=== PATIENT | female | born 1990 | race Caucasian/White ===

== ENCOUNTER 2016-07-26 18:01 | Emergency (ER) | payer OTHER ==
[2016-07-26 18:11] VITALS: BP 123/84
[2016-07-26] MEDS ORDERED: Ibuprofen TAB* 400 MG PO ONE (18:30)
[2016-07-26] MEDS ORDERED: cefTRIAXone VIAL(*) 1,000 MG VIAL IM ONE (18:30)
--- NOTE | 2016-07-26 18:36 | UC ---
Back Pain HPI - HPI Summary HPI Summary: awoke with right flank pain, mild/moderate, felt like her chronic back pain. She takes narcotics for that. She states she only takes narcotic pain meds once in a while, but took 2 today because the pain was so bad (got Rx for #180 on ). As day wore on, her pain got progressively worse. Started to wrap around to anterior abdomen. MIld nausea, poor appetite. States she last took pain meds at noon. No urinary symptoms, no fever though has felt achey and chilled today. Back pain is "sciatica and two bulging discs", is followed by her primary care doctor and has been referred to back specialist. - History of Current Complaint Chief Complaint: UCGeneralIllness Stated Complaint: RT SIDE BACK PAIN/AB PAIN Time Seen by Provider: 07/26/16 18:20 Hx Obtained From: Patient, Family/[employer] Representative - Hx Last Menstrual Period: APPROX 1 MO AGO Onset/Duration: Gradual Onset, Lasting Days - 1 Timing: Constant Severity Initially: Mild Severity Currently: Severe Back Pain: Is Discrete @ - right flank, wrapping around to right mid abdomen Aggravating: Movement, Lifting, Bending, Walking, Cough Alleviating: Nothing Associated Signs And Symptoms: Positive: Abdominal Pain - right mid abd, Flank Pain - severe, right, Pain with Weight Bearing. Negative: Swelling, Redness, Bruising, Fever, Weakness, Numbness, Tingling, Bladder Incontinence, Bowel Incontinence, Weight Loss - Risk Factors AAA Risk Factors: Negative TAD Risk Factors: Negative Cauda Equina Risk Factors: Negative Epidural Abscess Risk Factors: Negative - Allergies/Home Medications Allergies/Adverse Reactions: Allergies Allergy/AdvReac Type Severity Reaction Status Date / Time Doxycycline AdvReac GI Upset Verified 07/26/16 18:11 Home Medications: Home Medications ALPRAZolam TAB* [Xanax TAB*] 0.25 mg PO TID PRN 07/26/16 [History Confirmed ] HYDROcodone/ACETAMIN 5-325 MG* [[place] 5-325 TAB*] 2 tab PO Q6H PRN MDD 4 [History Confirmed 07/26/16] ValACYclovir (*) [Valtrex 1 GM(*)] 1 gm PO TID PRN 07/26/16 [History Confirmed 07/26/16] PMH/Surg Hx/FS Hx/Imm Hx - Additional Past Medical History Additional PMH: chronic back pain, on narcotics for this Cardiovascular History Of: Reports: Cardiac Disorders - PALPATAITONS Comment Only: Hypertension - while . - Surgical History Surgical History: Yes Surgery Procedure, Year, and Place: ESURE INSERTION DECEMBER 2013. REMOVED 02/2016. SALPINGECTOMY - Family History Known Family History: Negative: Renal Disease - Social History Lives: With Family Alcohol Use: Occasionally Substance Use Type: None Smoking Status (MU): Never Smoked Tobacco Type: Cigarettes Length of Time of Smoking/Using Tobacco: 2008 Have You Smoked in the Last Year: No Review of Systems Constitutional: Chills, Fatigue Skin: Negative Eyes: Negative ENT: Negative Respiratory: Negative Cardiovascular: Negative Gastrointestinal: Negative Genitourinary: Other - progressive right flank pain today. No urinary symptoms noted in past few days Motor: Negative Neurovascular: Negative Musculoskeletal: Decreased ROM, Myalgia Neurological: Negative Psychological: Negative All Other Systems Reviewed And Are Negative: Yes Physical Exam Triage Information Reviewed: Yes Appearance: Well-Appearing, Well-Nourished, Pain Distress - moaning, holding right flank, doesn't want to move off the chair Vital Signs: Initial Vital Signs Temp 100 F 07/26/16 18:05 Pulse 115 07/26/16 18:05 Resp 14 07/26/16 18:05 BP 123/84 07/26/16 18:05 Pulse Ox 97 07/26/16 18:05 Vital Signs Reviewed: Yes Eye Exam: Normal Eyes: Positive: Conjunctiva Clear Neck exam: Normal Neck: Positive: Nontender, No Lymphadenopathy Respiratory Exam: Normal Cardiovascular Exam: Normal Abdomen Description: Positive: Soft, Other: - moderate diffuse tenderness entire right side; exquisite right flank pain on percussion. No redness or swelling. Negative: Distended, Guarding, Hernia @, Hepatomegaly Musculoskeletal Exam: Normal Neurological Exam: Normal Psychological Exam: Normal Skin Exam: Normal Diagnostics - Laboratory Diagnostic Studies Completed/Ordered: U/A : 3+ leuks, 3+ blood, very cloudy Re-Evaluation - Re-Evaluation First Eval Re-Evaluation Time: 19:22 Change: Improved Comment: States she already feels much better, can take a deep breath now without pain Back Pain Course/Dx - Differential Dx/Diagnosis Differential Diagnosis/HQI/PQRI: Herniated Disc, Renal Colic, Strain Provider Diagnoses: pyelonephritis Discharge - Discharge Plan Condition: Stable Disposition: HOME Prescriptions: Cephalexin CAP* [Keflex CAP*] 500 mg PO QID #40 cap Patient Education Materials: Acute Pyelonephritis (ED) Referrals: Tano Torres [Primary Care Provider] -
[2016-07-26] MEDS ORDERED: Lidocaine 1%* 5 ML VIAL ONE (18:37)
== END 2016-07-26 19:25 | disposition home or self-care (01) ==
LOC: UCCORT 18:01
DX: N12 Tubulo-interstitial nephritis, not specified as acute or chronic (principal); Z88.1 Allergy status to other antibiotic agents
CPT/HCPCS: 87077; 87086; 96372; 99212; A9270-GY; G0463; J0696

== ENCOUNTER 2016-10-23 10:59 | Emergency (ER) | payer OTHER ==
[2016-10-23 12:20] VITALS: BP 124/71
--- NOTE | 2016-10-23 12:33 | UC ---
Throat Pain/Nasal Aaron HPI - HPI Summary HPI Summary: pt presents with c/o sore throat and generalized body aches X 2-3 days. Pt states is "hurts to swallow" - History of Current Complaint Stated Complaint: SORE THROAT,BACK PAIN Time Seen by Provider: 10/23/16 12:08 Hx Obtained From: Patient Hx Last Menstrual Period: 10/07/16 ?: No Onset/Duration: Sudden Onset, Lasting Days Severity: Moderate Cough: None Associated Signs & Symptoms: Positive: Dysphagia - Allergies/Home Medications Allergies/Adverse Reactions: Allergies Allergy/AdvReac Type Severity Reaction Status Date / Time Doxycycline AdvReac GI Upset Verified 07/26/16 18:11 PMH/Surg Hx/FS Hx/Imm Hx Previously Healthy: Yes Cardiovascular History Of: Reports: Cardiac Disorders - [place] Comment Only: Hypertension - while . - Surgical History Surgical History: Yes Surgery Procedure, Year, and Place: ESURE INSERTION DECEMBER 2013. REMOVED 02/2016. SALPINGECTOMY - Family History Known Family History: Positive: Other - positive [facility] for cancer Negative: Renal Disease - Social History Alcohol Use: Occasionally Substance Use Type: None Smoking Status (MU): Never Smoked Tobacco Type: Cigarettes Length of Time of Smoking/Using Tobacco: 2008 Have You Smoked in the Last Year: No Review of Systems Constitutional: Chills, Fatigue Skin: Negative Eyes: Negative ENT: Sore Throat Respiratory: Negative Cardiovascular: Negative Gastrointestinal: Negative Genitourinary: Negative Motor: Decreased ROM - low back, preexisting sciatica Neurovascular: Negative Musculoskeletal: Decreased ROM - low back, preexisting sciatica, being followed by PCP for this complaint, Myalgia Neurological: Negative Psychological: Negative All Other Systems Reviewed And Are Negative: Yes Physical Exam Triage Information Reviewed: Yes Appearance: Well-Appearing Vital Signs: Initial Vital Signs Temp 98.7 F 10/23/16 12:14 Pulse 102 10/23/16 12:14 Resp 14 10/23/16 12:14 BP 124/71 10/23/16 12:14 Pulse Ox 99 10/23/16 12:14 Vital Signs Reviewed: Yes Eye Exam: Normal ENT Exam: Other ENT: Positive: Nasal congestion, Tonsillar swelling, Tonsillar exudate Neck exam: Other Neck: Positive: Tenderness @ - left cervical chain Respiratory Exam: Normal Respiratory: Positive: No respiratory distress Cardiovascular Exam: Normal Musculoskeletal Exam: Other Musculoskeletal: Positive: ROM Limited @ - low back, preexisitng sciatica Neurological Exam: Normal Psychological Exam: Normal Skin Exam: Normal Throat Pain/Nasal Course/Dx - Differential Dx/Diagnosis Differential Diagnosis/HQI/PQRI: Pharyngitis, Tonsillitis Provider Diagnoses: tonsillitis Discharge - Discharge Plan Condition: Stable Disposition: HOME Prescriptions: Ibuprofen TAB* [Motrin TAB* 800 MG] 800 mg PO Q8H PRN #21 tab PRN Reason: Pain Penicillin VK TAB 500 MG(NF) [Penicillin VK 500 mg Tab(NF)] 500 mg PO Q8H #30 tab Patient Education Materials: Tonsillitis (ED) Referrals: Tano Torres [Primary Care Provider] - If Needed Additional Instructions: Please follow up with your PCP or return clinic as needed.
== END 2016-10-23 12:41 | disposition home or self-care (01) ==
LOC: UCCORT 10:59
DX: J03.90 Acute tonsillitis, unspecified (principal); Z88.1 Allergy status to other antibiotic agents
CPT/HCPCS: 99212; G0463

== ENCOUNTER 2017-09-19 07:59 | Emergency (ER) | payer OTHER ==
[2017-09-19 08:16] VITALS: BP 120/64
--- NOTE | 2017-09-19 08:57 | UC ---
Abdominal Pain Female HPI - HPI Summary HPI Summary: RLQ ABDOMINAL PAIN X 1 DAY PAIN IS SHARP , SEVER PAIN RADIATES TO HER GROIN AND BACK + NAUSEA , NO VOMITING, NO FEVER, + CHILLS, NO DYSURIA, NO DIARRHEA OR CONSTIPATION - History of Current Complaint Chief Complaint: UCAbdominalPain Stated Complaint: RIGHT SIDE ABD/BACK PAIN 2 DAYS Time Seen by Provider: 09/19/17 08:18 Hx Obtained From: Patient Hx Last Menstrual Period: 09/15/17 ?: No Onset/Duration: Gradual Onset, Lasting Days - 1, Still Present Timing: Constant Severity Initially: Moderate Severity Currently: Severe Pain Intensity: 9 Location: Discrete At: RLQ Radiates: Yes Radiates to: Back, Inguinal Character: Sharp Aggravating Factor(s): Movement Alleviating Factor(s): Nothing Associated Signs and Symptoms: Negative: Fever, Cough, Chest Pain, Dizzy, Back Pain, Constipation, Blood in Stool, Urinary Symptoms, Decreased Appetite, Vaginal Bleeding, Vaginal Discharge, Nausea, Vomiting, Diarrhea Allergies/Adverse Reactions: Allergies Allergy/AdvReac Type Severity Reaction Status Date / Time doxycycline Allergy Unknown rash, gi Verified 09/19/17 08:06 upset Home Medications: Home Medications Acetaminophen [Mapap] 500 mg PO PRN 09/19/17 [History] PMH/Surg Hx/FS Hx/Imm Hx Cardiovascular History: Cardiac Disease - PALPITATION - Surgical History Surgical History: Yes Surgery Procedure, Year, and Place: ESURE INSERTION DECEMBER 2013. REMOVED 02/2016. SALPINGECTOMY - Family History Known Family History: Positive: Other - positive [facility] for cancer Negative: Renal Disease - Social History Alcohol Use: Rare Substance Use Type: None Smoking Status (MU): Never Smoked Tobacco Type: Cigarettes Length of Time of Smoking/Using Tobacco: 2008 Have You Smoked in the Last Year: No Review of Systems Constitutional: Negative Skin: Negative Eyes: Negative ENT: Negative Respiratory: Negative Cardiovascular: Negative Gastrointestinal: Abdominal Pain, Nausea Genitourinary: Negative Is Patient Immunocompromised?: No All Other Systems Reviewed And Are Negative: Yes Physical Exam Triage Information Reviewed: Yes Appearance: Well-Nourished, Pain Distress Vital Signs: Initial Vital Signs Temp 98.4 F 09/19/17 08:08 Pulse 97 09/19/17 08:08 Resp 20 09/19/17 08:08 BP 120/64 09/19/17 08:08 Pulse Ox 98 03/27/18 08:08 Vital Signs Reviewed: Yes Eyes: Positive: Conjunctiva Clear ENT: Positive: Normal ENT inspection, Hearing grossly normal, Pharynx normal Neck: Positive: Supple, Nontender, No Lymphadenopathy Respiratory: Positive: Chest non-tender, Lungs clear, Normal breath sounds, No respiratory distress Cardiovascular: Positive: RRR, No Murmur, Pulses Normal Abdomen Description: Positive: Soft, Other: - TEDNERNESS RLQ. Negative: CVA Tenderness (R), CVA Tenderness (L), Distended, Guarding, Hernia @ Musculoskeletal Exam: Normal Neurological Exam: Normal Skin Exam: Normal Diagnostics - Laboratory Diagnostic Studies Completed/Ordered: CT abd / pelvic wo contrast. IMPRESSION: 1. NO HYDRONEPHROSIS OR NEPHROLITHIASIS. 2. THERE IS SMALL AMOUNT OF FREE FLUID WITHIN THE PELVIS. THIS MAY BE PHYSIOLOGIC WITHIN. A REPRODUCTIVE AGE FEMALE. 3. THERE ARE SCATTERED DIVERTICULA OF THE ASCENDING COLON WITH MILD PERICOLONIC. INFLAMMATORY CHANGE, WHICH MAY REPRESENT EARLY ACUTE RIGHT COLON DIVERTICULITIS IN THE. CORRECT CLINICAL SETTING.. Abd Pain Female Course/Dx - Differential Dx/Diagnosis Provider Diagnoses: RLQ ABDOMINAL PAIN Discharge - Sign-Out/Discharge Documenting (check all that apply): Discharge - Discharge Plan Condition: Stable Disposition: HOME Prescriptions: Ciprofloxacin TAB* [Cipro 500 MG TAB*] 500 mg PO BID #20 tab HYDROcodone/ACETAMIN 5-325 MG* [[place] 5-325 TAB*] 1 tab PO Q6H PRN #12 tab MDD 4 PRN Reason: Pain metroNIDAZOLE [Flagyl] 500 mg PO BID #14 tablet Patient Education Materials: Acute Abdominal Pain (DC) Referrals: Family [facility] [Primary Care Provider] - 5 Days Additional Instructions: CT abd/ pelvic : ? diverticulitis, also concern about kidney infection cont. with rest, increase fluid, Cipro 500 mg 2 x per day x 10 days, flagyl 500 mg 2 x per day x 7 days follow up with your pcp in 5 days - Billing Disposition and Condition Condition: STABLE Disposition: HOME
--- NOTE | 2017-09-19 09:15 | RAD ---
CLINICAL HISTORY: Right lower quadrant abdominal pain COMPARISON: August 14, 2015 TECHNIQUE: Multiple contiguous axial CT scans were obtained of the abdomen and pelvis, without intravenous contrast enhancement. Coronal and sagittal multiplanar reformations are submitted for review. Oral contrast was not administered. FINDINGS: The study is limited by the lack of intravenous contrast. This limits evaluation of the solid organs and vasculature. LUNG BASES: The lung bases are clear. LIVER: The liver is normal in shape, size, contour, and attenuation. BILE DUCTS: There is no intrahepatic or extrahepatic biliary dilatation. GALLBLADDER: The gallbladder is normal, without pericholecystic inflammatory change. PANCREAS: The pancreas is normal, without mass or ductal dilatation. SPLEEN: Normal in size and appearance. UPPER GI TRACT: Evaluation of the gastrointestinal tract is limited by incomplete gastric distention. The upper GI tract is unremarkable. SMALL BOWEL AND MESENTERY: The small bowel is normal in contour, course, and caliber. There is no obstruction or dilatation. COLON: There are scattered diverticula of the ascending colon. There is mild pericolonic inflammatory change along the ascending colon. ADRENALS: Normal bilaterally. KIDNEYS: The kidneys are normal in shape, size, contour, and axis. There is no hydronephrosis or nephrolithiasis. BLADDER: The bladder is smooth in contour. PELVIC ORGANS: Contraceptive inserts are noted. The uterus and adnexa are grossly normal for technique. There is a small amount of free fluid within the pelvis. AORTA: The aorta is normal. IVC: Unremarkable LYMPH NODES: There is no lymphadenopathy by size criteria. ABDOMINAL WALL: There is no evidence for abdominal wall hernia. BONES AND SOFT TISSUES: There are mild diffuse degenerative changes. OTHER: None IMPRESSION: 1. NO HYDRONEPHROSIS OR NEPHROLITHIASIS. 2. THERE IS SMALL AMOUNT OF FREE FLUID WITHIN THE PELVIS. THIS MAY BE PHYSIOLOGIC WITHIN A REPRODUCTIVE AGE FEMALE. 3. THERE ARE SCATTERED DIVERTICULA OF THE ASCENDING COLON WITH MILD PERICOLONIC INFLAMMATORY CHANGE, WHICH MAY REPRESENT EARLY ACUTE RIGHT COLON DIVERTICULITIS IN THE CORRECT CLINICAL SETTING..
[2017-09-19] MEDS ORDERED: Ibuprofen TAB* 600 MG PO ONE (09:16)
== END 2017-09-19 09:42 | disposition home or self-care (01) ==
LOC: UCCORT 07:59
DX: R10.31 Right lower quadrant pain (principal); K57.30 Diverticulosis of large intestine without perforation or abscess without bleeding; Z87.891 Personal history of nicotine dependence; Z88.3 Allergy status to other anti-infective agents
CPT/HCPCS: 74176; 81003; 87086; 99212; A9270-GY; G0463

== ENCOUNTER 2018-01-25 12:13 | Emergency (ER) | payer SELFPAY ==
[2018-01-25 13:16] VITALS: BP 136/73
--- NOTE | 2018-01-25 13:28 | UC ---
Lower Extremity/Ankle HPI - HPI Summary HPI Summary: Pt c/o right ankle pain that began on 01/20/18 after "rolling " ankle inward. Pt applied ice and elevated ankle with improvement to pain and swelling. Pt reports then she repeated "rolling " ankle yesterday morning and now right ankle is painful and swollen. Can bear minimum weight - History of Current Complaint Chief Complaint: UCTrauma Stated Complaint: RIGHT ANKLE INJURY Time Seen by Provider: 01/25/18 13:12 Hx Obtained From: Patient Hx Last Menstrual Period: present ?: No Onset/Duration: Sudden Onset, Lasting Days, Still Present Severity Initially: Mild Severity Currently: Moderate Pain Intensity: 8 Aggravating Factor(s): Standing, Ambulation Alleviating Factor(s): Rest, Elevation, Ice Able to Bear Weight: Yes - minimal - Risk Factors Gout Risk Factors: Negative DVT Risk Factors: Negative Septic Arthritis Risk Factor: Negative - Allergies/Home Medications Allergies/Adverse Reactions: Allergies Allergy/AdvReac Type Severity Reaction Status Date / Time doxycycline Allergy Unknown rash, gi Verified 01/25/18 13:16 upset Home Medications: Home Medications NK [No Home Medications Reported] 01/25/18 [History Confirmed 01/25/18] PMH/Surg Hx/FS Hx/Imm Hx Previously Healthy: Yes - Surgical History Surgical History: Yes Surgery Procedure, Year, and Place: ESURE INSERTION DECEMBER 2013. REMOVED 02/2016. SALPINGECTOMY - Family History Known Family History: Positive: Other - positive [facility] for cancer Negative: Renal Disease - Social History Occupation: Employed Full-time Lives: With Family Alcohol Use: Rare Substance Use Type: None Smoking Status (MU): Never Smoked Tobacco Type: Cigarettes Length of Time of Smoking/Using Tobacco: 2008 Have You Smoked in the Last Year: No Review of Systems Constitutional: Negative Skin: Bruising Eyes: Negative ENT: Negative Respiratory: Negative Cardiovascular: Negative Gastrointestinal: Negative Genitourinary: Negative Motor: Decreased ROM - right ankle, Weakness - right ankle Neurovascular: Negative Musculoskeletal: Arthralgia, Decreased ROM, Edema, Myalgia Neurological: Negative Psychological: Negative Is Patient Immunocompromised?: No All Other Systems Reviewed And Are Negative: Yes Physical Exam Triage Information Reviewed: Yes Appearance: Pain Distress Vital Signs: Initial Vital Signs Temp 98.5 F 01/25/18 13:10 Pulse 92 01/25/18 13:10 Resp 18 01/25/18 13:10 BP 136/73 01/25/18 13:10 Pulse Ox 99 01/25/18 13:10 Vital Signs Reviewed: Yes Eye Exam: Normal ENT Exam: Normal ENT: Positive: Hearing grossly normal Dental Exam: Normal Neck exam: Normal Respiratory Exam: Normal Respiratory: Positive: No respiratory distress Musculoskeletal: Positive: ROM Limited @ - right ankle, Edema @ - right lateral malleous Neurological Exam: Normal Psychological Exam: Normal Skin Exam: Normal Diagnostics - Radiology No standard instances Radiology Interpretation Completed By: Radiologist - IMPRESSION: NO ACUTE OSSEOUS INJURY. IF SYMPTOMS PERSIST, RECOMMEND REPEAT IMAGING. Lower Extremity Course/Dx - Differential Dx/Diagnosis Differential Diagnosis/HQI/PQRI: Fracture (Closed), Sprain Provider Diagnoses: right ankle sprain Discharge - Sign-Out/Discharge Documenting (check all that apply): Patient Departure - Discharge Plan Condition: Stable Disposition: HOME Patient Education Materials: Ankle Sprain (ED), R.I.C.E. Treatment (ED) Referrals: Harrison Deal MD [Primary Care Provider] - If Needed Nino Richardson MD [Medical Doctor] - If Needed - Billing Disposition and Condition Condition: STABLE Disposition: Home
--- NOTE | 2018-01-25 13:44 | RAD ---
HISTORY: inverse ankle roll X 2, swelling, pain COMPARISONS: August 25, 2014 VIEWS: 3, Frontal, lateral, and oblique views of the right ankle FINDINGS: BONE DENSITY: Normal. BONES: There is no displaced fracture. JOINTS: There is no arthropathy. ALIGNMENT: There is no dislocation. SOFT TISSUES: Unremarkable. OTHER FINDINGS: None. IMPRESSION: NO ACUTE OSSEOUS INJURY. IF SYMPTOMS PERSIST, RECOMMEND REPEAT IMAGING.
== END 2018-01-25 14:13 | disposition home or self-care (01) ==
LOC: UCCORT 12:13
DX: S93.401A Sprain of unspecified ligament of right ankle, initial encounter (principal); X50.0XXA Overexertion from strenuous movement or load, initial encounter; Y93.9 Activity, unspecified; Y92.9 Unspecified place or not applicable; Z88.1 Allergy status to other antibiotic agents
CPT/HCPCS: 99212; G0463

== ENCOUNTER 2018-11-01 07:28 | Emergency (ER) | payer OTHER ==
[2018-11-01 07:42] VITALS: BP 108/77
--- NOTE | 2018-11-01 07:53 | UC ---
Throat Pain/Nasal Aaron HPI - HPI Summary HPI Summary: Patient presents to urgent care with 4 days of progressive right ear pain radiating to her right side of her neck and throat. Patient also states she has a cough that causes burning in her chest. No shortness of breath. No productive sputum. No fevers or chills. Patient took Motrin Tylenol yesterday but nothing today. Patient is not taken any other [id number] medications. Patient denies sick contacts. Patient denies short of breath. No abdominal pain. No nausea vomiting. No rash. Patient states she is not . Patient's medications reviewed this visit. - History of Current Complaint Chief Complaint: UCRespiratory Stated Complaint: SORE THROAT, COUGH, EAR/JAW PAIN Time Seen by Provider: 11/01/18 07:52 Hx Obtained From: Patient Hx Last Menstrual Period: 10/08/18 Onset/Duration: Gradual Onset Severity: Moderate Pain Intensity: 6 Pain Scale Used: 0-10 Numeric - Allergies/Home Medications Allergies/Adverse Reactions: Allergies Allergy/AdvReac Type Severity Reaction Status Date / Time doxycycline Allergy Unknown rash, gi Verified 11/01/18 07:44 upset Home Medications: Home Medications Acetaminophen [Tylenol Extra Strength] 1,000 mg PO ONCE PRN 11/01/18 [History Confirmed 11/01/18] Citalopram TAB* [CeleXA TAB*] 40 mg PO DAILY 11/01/18 [History Confirmed ] Ibuprofen TAB* [Motrin TAB* 400 MG] 400 mg PO ONCE PRN 11/01/18 [History Confirmed 11/01/18] PMH/Surg Hx/FS Hx/Imm Hx Previously Healthy: Yes - Surgical History Surgical History: Yes Surgery Procedure, Year, and Place: ESURE INSERTION DECEMBER 2013. REMOVED 02/2016; tubal ligation. SALPINGECTOMY - Family History Known Family History: Positive: Other - positive [facility] for cancer, Non- Contributory Negative: Renal Disease - Social History Occupation: Employed Full-time Lives: With Family Alcohol Use: Rare Substance Use Type: None Smoking Status (MU): Never Smoked Tobacco Type: Cigarettes Length of Time of Smoking/Using Tobacco: 2009 Have You Smoked in the Last Year: No Review of Systems All Other Systems Reviewed And Are Negative: Yes Skin: Positive: Negative Eyes: Positive: Negative ENT: Positive: Sore Throat, Ear Ache, Nasal Discharge, Sinus Congestion Respiratory: Positive: Negative Cardiovascular: Positive: Negative Physical Exam - Summary Physical Exam Summary: Vital Signs Reviewed: Yes A+Ox3, no distress Eyes: Conjunctiva Clear, BOBBY. EOM intact and full ENT: Hearing grossly normal right TM++ fluid, no erythema, mild retraction left TM wnl No dental pain, no TMJ brianna, full jaw opening, mmoist, uvula midline, no exudate, no erythema Neck: Positive: Supple, no lymphadenopathy Respiratory: Positive: No respiratory distress, No accessory muscle use + CTA throughout no w/r, no cough Cardiovascular: RRR nl s1, s2 no m/r CBT <2 sec abd soft + BS nt/nd no guarding, no distension Musculoskeletal Exam: CORTES x 4 without difficulty Strength Intact, ROM Intact Neurological: Positive: Alert, + sensation throughout Psychological: Positive: Normal Response To Family Skin: Positive: no rash, no ecchymosis Triage Information Reviewed: Yes Vital Signs: Initial Vital Signs Temp 98.3 F 11/01/18 07:38 Pulse 94 11/01/18 07:38 Resp 16 11/01/18 07:38 BP 108/77 11/01/18 07:38 Pulse Ox 99 11/01/18 07:38 Throat Pain/Nasal Course/Dx - Course Course Of Treatment: Patient presents with progressive right ear pain right throat pain and a cough. Patient states this is been going on for 4-5 days. On exam vital signs are stable. Patient consistent with right otitis media. No intraoral lesions red throat. No difficulty with swallowing. Lungs are clear without wheezing or increased work of breathing. Discussed with patient at length. Recommend antibiotics and Flonase. Motrin Tylenol. Gargle spit with warm salt water. Secretion precaution. Return precaution. Comfortable in agreement with plan. - Differential Dx/Diagnosis Provider Diagnosis: Right otitis media Discharge - Sign-Out/Discharge Documenting (check all that apply): Post-Discharge Follow Up All imaging exams completed and their final reports reviewed: No Studies - Discharge Plan Condition: Stable Disposition: HOME Prescriptions: Amoxicillin/Clavulanate TAB* [Augmentin TAB 875*] 875 mg PO BID #20 tab Fluticasone NASAL SPRAY 50MCG* [Flonase NASAL SPRAY 50MCG*] 2 spray BOTH NARES DAILY #1 btl Patient Education Materials: Ear Infection (ED) Referrals: Harrison Deal MD [Primary Care Provider] - Additional Instructions: - Stay well hydrated. Drink plenty of non-alcoholic, non-caffinated beverages. - Alternate ibuprofen (Advil, Motrin) 600mg and Tylenol every 3 hours for pain or fever. Take with food. Do NOT take for more than 4-5 days. - These infections are spread by secretions - do NOT share eating or drinking utensils - clean items you share with other people such as cell phones, computer mouse, TV remote, computer tablets,etc. Once you have been antibiotics for 2 days, change your toothbrush and your pillowcase. - get plenty of restful sleep - humidify the air in the room where you sleep - boil water, run a hot steam shower, vaporizer, cups of water by heat register - okay to take over the counter decongestant and cough medication - use nasal spray as prescribed - contact your doctor or return with questions or concerns - Billing Disposition and Condition Condition: STABLE Disposition: Home
== END 2018-11-01 08:10 | disposition home or self-care (01) ==
LOC: UCCORT 07:28
DX: H66.91 Otitis media, unspecified, right ear (principal); Z88.1 Allergy status to other antibiotic agents
CPT/HCPCS: 99211; G0463

== ENCOUNTER 2019-04-04 08:02 | Emergency (ER) | payer OTHER ==
--- OUTSIDE RECORDS SUMMARY | 2019-04-04 08:18 | XMS REPORT | Continuity of Care Document ---
:1990 External Reference #:[id number] Author Name Harrison Deal M.D. Address [address] [facility] [address] [place] [address] Care Team Providers Name Role Phone Harrison Deal MD - Family Medicine Care Team Information Tank Builder Supervisor Cheryl Rivera MD - Obstetrics & Care Team Information Tank Builder Supervisor Gynecology Problems Description No Information Available Social History Type Date Description Comments Sex Unknown ETOH Use Occasionally consumes alcohol Tobacco Use Start: Unknown Patient has never smoked Allergies, Adverse Reactions, Alerts Active Allergies Reaction Severity Comments Date Doxycycline Severe Acid Reflux 01/08/2015 Inactive Allergies NKDA 12/11/2014 Medications Active Medications SIG Qnty Indications Ordering Provider Date Alprazolam 1 tab by mouth 30tabs F41.9 Harrison Deal, 03/06/2019 0.25mg Tablets twice a day as M.D. needed Phentermine HCL 1 by mouth every 30caps E66.9 Harrison Deal, 03/06/2019 37.5mg in the morning M.D. Capsules Citalopram Take One Tablet 90tabs F41.9 Harrison Deal, 08/22/2018 Hydrobromide By Mouth Every M.D. 40mg Tablets Day F33.9 Ibuprofen 1 by mouth three 90tabs M51.37 Harrison Deal, 09/22/2017 800mg Tablets times a day as M.D. needed M54.17 R10.31 Valacyclovir HCL tab one by mouth 90tabs B00.2 Harrison Deal, 1gm Tablets three times a day M.D. as needed Immunizations CPT Code Status Date Vaccine Lot # [id number] Refused 05/01/2015 Flu Vaccine Vital Signs Date Vital Result Comment 03/06/2019 8:31am BP Systolic 124 mmHg BP Diastolic 66 mmHg Height 63.75 inches 5'3.75" Weight 206.00 lb BMI (Body Mass Index) 35.6 kg/m2 Heart Rate 87 /min Respiratory Rate 16 /min 11/23/2018 9:24am Height 63.75 inches 5'3.75" Weight 203.00 lb BMI (Body Mass Index) 35.1 kg/m2 Heart Rate 87 /min Respiratory Rate 16 /min Results Test Date Facility Test Result H/L Range Note Laboratory test 03/06/2019 [facility] Sed Rate <pending> finding [address] (607)- - T4 Free - Thyroxine <pending> TSH, Ultrasenstive <pending> Laboratory test 03/06/2019 [facility] 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 03/06/2019 J30.9 Allergic rhinitis, unspecified Harrison Deal M.D. 03/06/2019 F41.9 Anxiety disorder, unspecified Harrison Deal M.D. 03/06/2019 K21.9 Gastro-esophageal reflux disease without Harrison Deal M.D. esophagitis 03/06/2019 B00.2 Herpesviral gingivostomatitis and Harrison Deal M.D. pharyngotonsillitis 03/06/2019 E66.9 Obesity, unspecified Harrison Deal M.D. 03/06/2019 M51.37 Other intervertebral disc degeneration, Harrison Deal M.D. lumbosacral region 03/06/2019 K57.32 Diverticulitis of large intestine without Harrison Deal M.D. perforation or abs 03/06/2019 Z30.8 Encounter for other contraceptive management Harrison Deal M.D. 03/06/2019 M54.17 Radiculopathy, lumbosacral region Harrison Deal M.D. 03/06/2019 F33.9 Major depressive disorder, recurrent, Harrison Deal M.D. unspecified 03/06/2019 E55.9 Vitamin D deficiency, unspecified Harrison Deal M.D. 02/27/2019 L20.9 Atopic dermatitis, unspecified Harrison Deal M.D. 02/27/2019 J30.9 Allergic rhinitis, unspecified Harrison Deal M.D. 02/27/2019 F41.9 Anxiety disorder, unspecified Harrison Deal M.D. 02/27/2019 K21.9 Gastro-esophageal reflux disease without Harrison Deal M.D. esophagitis 02/27/2019 B00.2 Herpesviral gingivostomatitis and Harrison Deal M.D. pharyngotonsillitis 02/27/2019 E66.9 Obesity, unspecified Harrison Deal M.D. 02/27/2019 M51.37 Other intervertebral disc degeneration, Harrison Deal M.D. lumbosacral region 02/27/2019 K57.32 Diverticulitis of large intestine without Harrison Deal M.D. perforation or abs 02/27/2019 Z30.8 Encounter for other contraceptive management Harrison Deal M.D. 02/27/2019 M54.17 Radiculopathy, lumbosacral region Harrison Deal M.D. 02/27/2019 F33.9 Major depressive disorder, recurrent, Harrison Deal M.D. unspecified 02/27/2019 E55.9 Vitamin D deficiency, unspecified Harrison Deal M.D. 11/23/2018 L20.9 Atopic dermatitis, unspecified Harrison Deal M.D. 11/23/2018 J30.9 Allergic rhinitis, unspecified Harrison Deal M.D. 11/23/2018 F41.9 Anxiety disorder, unspecified Harrison Deal M.D. 11/23/2018 K21.9 Gastro-esophageal reflux disease without Harrison Deal M.D. esophagitis 11/23/2018 B00.2 Herpesviral gingivostomatitis and Harrison Deal M.D. pharyngotonsillitis 11/23/2018 E66.9 Obesity, unspecified Harrison Deal M.D. 11/23/2018 M51.37 Other intervertebral disc degeneration, Harrison Deal M.D. lumbosacral region 11/23/2018 K57.32 Diverticulitis of large intestine without Harrison Deal M.D. perforation or abs 11/23/2018 Z30.8 Encounter for other contraceptive management Harrison Deal M.D. 11/23/2018 M54.17 Radiculopathy, lumbosacral region Harrison Deal M.D. 11/23/2018 F33.9 Major depressive disorder, recurrent, Harrison Deal M.D. unspecified Plan of Treatment 03/06/2019 - Harrison Deal M.D.L20.9 Atopic dermatitis, unspecifiedComments: SKIN CARE INSTRUCTIONS LOTION OR BABY OIL 2-3 APPLICATION PER DAYUSE MOISTURIZING SOAPAVOID PROLONGED WATER EXPOSUREAVOID USING HOT WATER IN SHOWERFollow up:2 weeks.J30.9 Allergic rhinitis, unspecifiedComments:INCREASE PO FLUID USE ANTIHISTAMINE PRN SECOND HAND SMOKING [id number] Anxiety disorder, unspecifiedNew Medication:Alprazolam 0.25 mg - 1 tab by mouth twice a day as neededComments:COUNCELLING AND REASSURANCE RELAXATION TECHNIQUES DISCUSSEDCOUNSELED RE: STRESSORS IN LIFE AVOID ALLENERGY/HIGH CAFFEINE DRINKS DUR CHECKED TO RESTART CITALOPRAM AND REEVALUATE IN 2 WKSK21.9 Gastro- esophageal reflux disease without esophagitisComments:AVOID CAFFEINE, ETOH AND SPICY FOODSTUMS OR MYLANTA PRN CALL WITH PROBLEMS OR HXHGZTVUJ32.2 Herpesviral gingivostomatitis and pharyngotonsillitisComments:ORAL HYGIENE XUAISXAGGYGQB08.9 Obesity, unspecifiedNew Medication:Phentermine HCL 37.5 mg - 1 by mouth every in the morningComments:WT LOSS COUNCELLINGEXERCISEDIET OQPUNBSLMTMI51.37 Other intervertebral disc degeneration, lumbosacral regionComments:EXERCISE/HEAT /MESSAGEAVOID HEAVY LIFTING WT LOSSTYLENOL OR MOTRIN PRN DUR ZFDGMPOG09.32 Diverticulitis of large intestine without perforation or absComments:TYLENOL OR MOTRIN PRNINCREASE PO FLUID LAXATIVE PRN F /U DIRECTEDF/U WITH GI PRNZ30.8 Encounter for other contraceptive managementComments:F/U WITH OB/GYNM54.17 Radiculopathy, lumbosacral regionComments:EXERCISE/HEAT /MESSAGE AVOID HEAVY LIFTING WT LOSS TYLENOL OR MOTRIN PRN DUR JAMBIGQS67.9 Major depressive disorder, recurrent, unspecifiedComments:COUNCELLING AND REASSURANCE RELAXATION TECHNIQUESSTRESSORS IN LIFE AVOID ALL ENERGY/HIGH CAFFEINE ZCNXPNG76.9 Vitamin D deficiency, unspecifiedComments:INCREASE EXPOSURE TO SUNREVIEW OF DIET Functional Status Description No Information Available Mental Status Description No Information Available Referrals Description No Information Available
--- OUTSIDE RECORDS SUMMARY | 2019-04-04 08:18 | XMS REPORT | Continuity of Care Document ---
:1990 External Reference #:[id number] Author Name Harrison Deal M.D. Address [address] [facility] [address] [place] [address] Care Team Providers Name Role Phone Harrison Deal MD - Family Medicine Care Team Information Fisher Oyster [phone] Cheryl Rivera MD - Obstetrics & Care Team Information Fisher Oyster Gynecology Problems Description No Information Available Social [...] CPT Code Status Date Vaccine Lot # [id number] Refused 05/01/2015 Flu Vaccine Vital Signs Date Vital Result Comment 03/20/2019 8:48am BP Systolic 124 mmHg BP Diastolic 64 mmHg Height 63.75 inches 5'3.75" Weight 198.00 lb BMI (Body Mass Index) 34.2 kg/m2 Heart Rate 98 /min Respiratory Rate 16 /min 03/06/2019 8:31am BP Systolic 124 mmHg BP Diastolic 66 mmHg Height 63.75 inches 5'3.75" Weight 206.00 lb BMI (Body Mass Index) 35.6 kg/m2 Heart Rate 87 /min Respiratory Rate 16 /min Results Test Date Facility Test Result H/L Range Note CBC With Diff 03/06/2019 [facility] WBC 8.4 10*3/uL (4.1-11.0) [address] (607)- - RBC 4.42 10*6/uL (4.00-5.40) HGB 13.5 g/dL (12.0-16.0) HCT 39.5 % (36.0-47.0) MCV 89.5 fL (80.0-95.0) MCH 30.5 pg (27.0-32.0) MCHC 34.1 g/dL (32.0-36.0) RDW 13.0 % (10.5-14.5) PLT 316 10*3/uL (150-450) MPV 9.2 fL (7.1-10.7) Neut % 57.7 % (35.0-75.0) Lymph % 31.8 % (16.0-52.0) Crane % 8.6 % High (0.0-8.0) Eos % 1.4 % (0.0-5.0) Baso % 0.5 % (0.0-4.0) Neut # 4.8 10*3/uL (1.8-7.7) Lymph # 2.7 10*3/uL (1.2-4.8) Crane # 0.7 10*3/uL (0.0-0.8) Eos # 0.1 10*3/uL (0.0-0.5) Baso # 0.0 10*3/uL (0.0-0.2) CMP 03/06/2019 [facility] Sodium 141 mmol/L (136-145) [address] (605)- - Potassium 4.3 mmol/L (3.6-5.2) Chloride 107 mmol/L (100-108) Co2 30 mmol/L (22-31) Anion Gap 4 mmol/L Low (7-16) Urea Nitrogen 13 mg/dL (7-24) Creatinine 0.67 mg/dL (0.60-1.00) BUN/Creat Ratio 19.4 RATIO (10.0-20.0) Glucose 92 mg/dL (70-99) Calcium 9.2 mg/dL (8.4-10.2) Total Protein 7.1 g/dL (6.4-8.2) Albumin 3.9 g/dL (3.5-4.6) Globulin 3.2 g/dL (2.7-4.3) Alb/Glob Ratio 1.2 RATIO Alkaline Phosphatase 98 U/L (45-117) Bilirubin,Total 0.4 mg/dL (0.0-1.0) Ast (Sgot) 26 U/L (11-39) Alt (SGPT) 71 U/L (12-78) GFR >60 ml/min/1.73m2 (>59) GFR ( Amer) >60 ml/min/1.73m2 (>59) GFR Interpretation <SEE NOTE> 1 Laboratory test finding 03/06/2019 [facility] Esr 12 mm/h (0-20) [address] (539)- - Free Thyroxine @ 0.91 ng/dL (0.76-1.46) TSH,Ultrasensitive @ 3.720 mIU/L (0.360-4.170) Lipid 03/06/2019 [facility] Cholesterol @ 200 mg/dL (0-200) [address] (910)- - Triglyceride @ 122 mg/dL (30-200) HDL Cholesterol @ 38 mg/dL Low (>40) 2 Chol/HDL Ratio 5.3 RATIO 3 LDL Chol (Calc) 138 mg/dL High (<130) 4 Laboratory test 03/06/2019 [facility] 25 Hydroxy Vit 31 ng/mL (31-100 ) 5 finding [address] D @ (351)- - 1 NORMAL KIDNEY FUNCTION OR MILD DISEASE - GFR >OR= 60 CHRONIC KIDNEY DISEASE - GFR 15 - 59 RENAL FAILURE - GFR <15 Est. GFR calculation based on the MDRD study equation, which assumes a steady state for creatinine. Est. GFR should not be used for medication dosing. 2 PER NCEP ATP III GUIDELINES: RESULTS LOWER THAN 40 MG/DL ARE SUGGESTIVE OF INCREASED RISK FOR CORONARY ARTERY DISEASE. RESULTS > OR = TO 60 MG/DL ARE CONSIDERED A NEGATIVE RISK FACTOR. 3 INTERPRETATION OF CHOL-HDL RATIO CHD RISK FEMALE MALE VERY HIGH >8.3 >14.3 HIGH 5.6- 8.3 6.7- 14.3 AVERAGE 3.7- 5.6 4.0- 6.7 BELOW AVERAGE 2.5- 3.7 2.7- 4.0 PROTECTED <2.5 <2.7 4 PER NCEP ATP III GUIDELINES: OPTIMAL < 100 NEAR OPTIMAL 100 - 129 BORDERLINE HIGH 130 - 159 HIGH 160 - 189 VERY HIGH > 189 5 A REVIEW OF THE LITERATURE SUGGESTS THE FOLLOWING RANGES FOR THE CLASSIFICATION OF 25-OH VITAMIN D STATUS: VITAMIN D STATUS 25-OH VITAMIN D DEFICIENCY <20 NG/ML INSUFFICIENCY 20-30 NG/ML SUFFICIENCY 31 - 100 NG/ML TOXICITY > 100 NG/ML A PEDIATRIC REFERENCE RANGE HAS NOT BEEN ESTABLISHED USING THIS METHOD. Procedures Description No Information Available Medical Devices Description No Information Available Encounters Type Date Location Provider Dx Diagnosis Office Visit 03/06/2019 Harrison Rodrigez, L20.9 Atopic dermatitis, 8:30a M.D. 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 03/20/2019 J30.9 Allergic rhinitis, unspecified Harrison Deal M.D. 03/20/2019 F41.9 Anxiety disorder, unspecified Harrison Deal M.D. 03/20/2019 K21.9 Gastro-esophageal reflux disease without Harrison Deal M.D. esophagitis 03/20/2019 B00.2 Herpesviral gingivostomatitis and Harrison Deal M.D. pharyngotonsillitis 03/20/2019 E66.9 Obesity, unspecified Harrison Deal M.D. 03/20/2019 M51.37 Other intervertebral disc degeneration, Harrison Deal M.D. lumbosacral region 03/20/2019 K57.32 Diverticulitis of large intestine without Harrison Deal M.D. perforation or abscess without bleeding 03/20/2019 Z30.8 Encounter for other contraceptive management Harrison Deal M.D. 03/20/2019 M54.17 Radiculopathy, lumbosacral region Harrison Deal M.D. 03/20/2019 F33.9 Major depressive disorder, recurrent, Harrison Deal M.D. unspecified 03/20/2019 E55.9 Vitamin D deficiency, unspecified Harrison Deal M.D. 03/06/2019 L20.9 Atopic dermatitis, unspecified Harrison Deal [...] M.D. esophagitis 02/27/2019 B00.2 Herpesviral gingivostomatitis and SayHarrison M.D. pharyngotonsillitis 02/27/2019 E66.9 Obesity, unspecified Harrison [...] Harrison Deal M.D. unspecified Plan of Treatment 03/20/2019 - Harrison Deal M.D.L20.9 Atopic dermatitis, unspecifiedComments: SKIN CARE INSTRUCTIONS LOTION OR BABY OIL 2-3 APPLICATION PER DAYUSE MOISTURIZING SOAPAVOID PROLONGED WATER EXPOSUREAVOID USING HOT WATER IN HCYLRBO65.9 Allergic rhinitis, unspecifiedComments:INCREASE PO FLUID USE ANTIHISTAMINE PRN SECOND HAND SMOKING [id number] Anxiety disorder, unspecifiedComments:COUNCELLING AND REASSURANCE RELAXATION TECHNIQUES DISCUSSEDCOUNSELED RE: STRESSORS IN LIFE AVOID ALLENERGY/HIGH CAFFEINE DRINKS DUR CHECKED TO RESTART CITALOPRAM AND REEVALUATE IN 2 WKSK21.9 Gastro- esophageal reflux disease without esophagitisComments:AVOID CAFFEINE, ETOH AND SPICY FOODSTUMS OR MYLANTA PRN CALL WITH PROBLEMS OR NFFJZZCSZ01.2 Herpesviral gingivostomatitis and pharyngotonsillitisComments:ORAL HYGIENE GQZNYWWDDCTZI47.9 Obesity, unspecifiedComments:WT LOSS COUNCELLINGEXERCISEDIET KZYMWEREWSTV57.37 Other intervertebral disc degeneration, lumbosacral regionComments:EXERCISE/HEAT /MESSAGEAVOID HEAVY LIFTING WT LOSSTYLENOL OR MOTRIN PRN DUR FVZVPUAT22.32 Diverticulitis of large intestine without perforation or abscess without bleedingComments:TYLENOL OR MOTRIN PRNINCREASE PO FLUID LAXATIVE PRN F/U DIRECTEDF/U WITH GI PRNZ30.8 Encounter for other contraceptive managementComments:F/U WITH OB/GYNM54.17 Radiculopathy, lumbosacral regionComments:EXERCISE/HEAT /MESSAGE AVOID HEAVY LIFTING WT LOSS TYLENOL OR MOTRIN PRN DUR MHEEUOTJ85.9 Major depressive disorder, recurrent, unspecifiedComments:COUNCELLING AND REASSURANCE RELAXATION TECHNIQUESSTRESSORS IN LIFE AVOID ALL ENERGY/HIGH CAFFEINE QCLYTKB83.9 Vitamin D deficiency, unspecifiedComments:INCREASE EXPOSURE TO SUNREVIEW OF DIET Functional Status Description No Information Available Mental Status Description No Information Available Referrals Description No Information Available
[2019-04-04 08:26] VITALS: BP 121/81
--- NOTE | 2019-04-04 08:44 | UC ---
Ear Complaint HPI - HPI Summary HPI Summary: The patient is a 28-year-old female with a one to 2 day history of bilateral earaches. She has had no fever. She has a mild bitemporal headache. She has some nasal congestion and postnasal drip. She has a history of seasonal allergic rhinitis. - History of Current Complaint Chief Complaint: UCEar Stated Complaint: JEROME,BILAT EAR PAIN Time Seen by Provider: 04/04/19 08:36 Hx Obtained From: Patient Hx Last Menstrual Period: 04/02/19 Onset/Duration: Gradual Onset, Lasting Hours Severity Initially: Severe Severity Currently: Severe Pain Intensity: 8 Pain Scale Used: 0-10 Numeric Aggravating Factors: Nothing Alleviating Factors: Nothing Associated Signs/Symptoms: Positive: URI Symptoms Related History: Seasonal Allergies - Allergies/Home Medications Allergies/Adverse Reactions: Allergies Allergy/AdvReac Type Severity Reaction Status Date / Time doxycycline Allergy Unknown rash, gi Verified 04/04/19 08:18 upset Home Medications: Home Medications Phentermine HCl 15 mg PO DAILY 04/04/19 [History Confirmed 04/04/19] PMH/Surg Hx/FS Hx/Imm Hx Previously Healthy: Yes - Surgical History Surgical History: Yes Surgery Procedure, Year, and Place: ESURE INSERTION DECEMBER 2013. REMOVED 02/2016; tubal ligation. SALPINGECTOMY - Family History Known Family History: Positive: Hypertension, Other - positive FMH for cancer, Non-Contributory Negative: Renal Disease - Social History Alcohol Use: Rare Substance Use Type: None Smoking Status (MU): Never Smoked Tobacco Type: Cigarettes Length of Time of Smoking/Using Tobacco: 2008 Have You Smoked in the Last Year: No Review of Systems All Other Systems Reviewed And Are Negative: Yes Constitutional: Positive: Negative Skin: Positive: Negative Eyes: Positive: Negative ENT: Positive: Ear Ache, Nasal Discharge, Sinus Congestion Respiratory: Positive: Negative Cardiovascular: Positive: Negative Gastrointestinal: Positive: Negative Genitourinary: Positive: Negative Motor: Positive: Negative Neurovascular: Positive: Negative Musculoskeletal: Positive: Negative Neurological: Positive: Headache Physical Exam Triage Information Reviewed: Yes Appearance: Well-Appearing, No Pain Distress, Well-Nourished Vital Signs: Initial Vital Signs Temp 98.2 F 04/04/19 08:21 Pulse 93 04/04/19 08:21 Resp 16 04/04/19 08:21 BP 121/81 04/04/19 08:21 Pulse Ox 97 04/04/19 08:21 Vital Signs Reviewed: Yes Eyes: Positive: Conjunctiva Clear ENT: Positive: Hearing grossly normal, Nasal congestion, TM bulging, Sinus tenderness - mild, Uvula midline. Negative: TM red, Tonsillar swelling, Tonsillar exudate, Trismus Dental Exam: Normal Neck: Positive: Supple, Nontender, No Lymphadenopathy Respiratory: Positive: Lungs clear, Normal breath sounds, No respiratory distress, No accessory muscle use Cardiovascular: Positive: RRR, No Murmur Musculoskeletal: Positive: ROM Intact, No Edema Neurological: Positive: Alert Psychological Exam: Normal Skin Exam: Normal Ear Complaint Course/Dx - Course Course Of Treatment: states she can not tolerate nasal spray - Differential Dx/Diagnosis Provider Diagnosis: Seasonal allergic rhinitis, Bilateral serous otitis media Discharge ED - Sign-Out/Discharge Documenting (check all that apply): Patient Departure All imaging exams completed and their final reports reviewed: No Studies - Discharge Plan Condition: Stable Disposition: HOME Prescriptions: predniSONE [Deltasone 20 MG TAB] 40 mg PO DAILY #10 tab Patient Education Materials: Serous Otitis Media (ED) Referrals: [facility] [Outside] - If Needed Additional Instructions: recheck for new or worsening symptoms you may take OTC nasal decongestants - Billing Disposition and Condition Condition: STABLE Disposition: Home
== END 2019-04-04 08:49 | disposition home or self-care (01) ==
LOC: UCCORT 08:02
DX: J30.2 Other seasonal allergic rhinitis (principal); H65.93 Unspecified nonsuppurative otitis media, bilateral; Z88.1 Allergy status to other antibiotic agents; Z87.891 Personal history of nicotine dependence
CPT/HCPCS: 99212; G0463